=== PATIENT | male | born 1940 | race Caucasian/White ===

== ENCOUNTER 2019-07-14 09:37 | Outpatient (CLI) | payer MEDICARE, OTHER, SELFPAY ==
--- NOTE | 2019-07-14 | US_ITS ---
WS: [id number] Abdomen ultrasound, 07/14/2019 Clinical Data: SPLENIC LESION Comparison: CT chest abdomen, 10/07/2018 Findings: The pancreas shows no cyst, pseudocyst or evidence of pancreatitis. The liver shows no masses or dilated intrahepatic ducts. There are multiple small simple cysts. The gallbladder has no stones or sludge. The wall measures 1.7 mm with no pericholecystic fluid. The common bile duct is 1.5 mm and no intraductal abnormalities are noted. The right kidney is 10.6 cm. No cysts, masses or hydronephrosis is seen. The left kidney is 10.0 cm. No cysts, masses or hydronephrosis is seen. The abdominal aorta is not dilated and the inferior vena cava has normal flow. No vascular abnormalit ies are seen. The spleen was difficult to identify because of the lung obscuring the spleen. No definite splenic le sions are seen. US/US abdomen complete* [id number] Impression: 1. Difficult to identify the spleen and a repeat CT abdomen would identify the spleen better. 2. No acute intraabdominal abnormalities are noted.
== END 2019-07-14 09:38 | disposition home or self-care (01) ==
LOC: RADOUTREAD 11:32
PROVIDERS: Family Provider Physician Assistant; PCP Physician Assistant; Visit Provider Physician Assistant
DX: Z76.89 Persons encountering health services in other specified circumstances (principal)

== ENCOUNTER 2019-08-02 08:37 | Outpatient (CLI) | payer MEDICARE, OTHER, SELFPAY ==
--- NOTE | 2019-08-02 08:47 | CT_ITS ---
WS: [id number] CT ABDOMEN AND PELVIS WITH CONTRAST HISTORY: SPLENIC LESION TECHNIQUE: Imaging performed of the abdomen and pelvis with IV contrast. Single phase imaging of the abdomen. Coronal and sagittal reformats are submitted. All CT scans at [facility] use at least one of these dose optimization techniques: automated exposure control; mA and/or kV adjustment per patient size (includes targeted exams where dose is matched to clinical indication); or iterativ e reconstruction. IV CONTRAST: Omnipaque 300; 95 mL IV. Oral contrast: Yes. DLP: 848.3 mGycm COMPARISON: 10/07/2018 and ultrasound 07/14/2019 Lower thorax: Emphysema at the lung bases. No pleural effusion. Heart is normal size. No hiatal herni a. Liver/biliary system: Several low-attenuation lesions are present in the liver. The largest in the LE FT lobe measures 11 mm and unchanged. There is also mild intrahepatic duct dilatation which is new. Gallbladder: Normal. No gallstones or wall thickening. No pericholecystic fluid. Pancreas: Normal. Spleen: Spleen is normal size measuring 7.8 cm. Again noted are innumerable small cystic masses scatt ered throughout the spleen. The largest measures 6 mm. No increase in size or number as apparent. Adrenal glands: Normal. Right kidney: Normal. Left kidney: Normal. Aorta: Moderate atherosclerosis aorta. Mild ectasia infrarenal aorta 2.5 cm. Heavy calcification at t he bifurcation. Lymphadenopathy: None. Free fluid: None. GI tract: Extensive constipation. No obstructive pattern. No wall thickening. The appendix is not def initely identified. Abdominal wall: Unremarkable abdominal wall. No hernia. Pelvis: Mild diffuse thickening of the urinary bladder wall measuring up to 6 mm. RIGHT lateral bladd er diverticulum is identified measuring 2.2 cm. No focal thickening. Prostate gland is obscured by ar tifact in the LEFT hip prosthesis. Detail of the pelvis is limited with artifact. Bones: Unilateral RIGHT L5 pars defect. Prior LEFT hip arthroplasty. CT/CT abdomen pelvis w con* [id number] IMPRESSION: 1. Stable appearance of the spleen since 10/07/2018. No enlargement. Multiple ti ny cysts are unchanged. These may be congenital. Splenic metastasis would be un usual without a prior diagnosis of malignancy. 2. Interval development of very mild intrahepatic duct dilatation. No gallston es are identified. Consider follow-up MRCP for further evaluation. 3. Hepatic cysts. 4. Emphysema. 5. Bladder wall thickening with a RIGHT lateral diverticulum. May be due to ou tlet obstruction. Prostate gland is obscured by beam hardening artifact from th e LEFT hip arthroplasty.
[2019-08-02] MEDS: iohexol 300 mg/mL 50 mL Btl PO (09:17)
[2019-08-02] MEDS: iohexol 300 mg/mL 100 mL Btl IV (09:46)
== END 2019-08-02 08:38 | disposition home or self-care (01) ==
LOC: RADWPI 08:46
PROVIDERS: Family Provider Physician Assistant; PCP Physician Assistant; Visit Provider Physician Assistant
DX: K57.90 Diverticulosis of intestine, part unspecified, without perforation or abscess without bleeding (principal); D73.9 Disease of spleen, unspecified; K76.89 Other specified diseases of liver; J43.9 Emphysema, unspecified
CPT/HCPCS: 74177; Q9967

== ENCOUNTER 2020-07-01 16:53 | Emergency (ER) | payer MEDICARE, OTHER, SELFPAY ==
[2020-07-01 17:00] VITALS: BP 240/106; PULSE 73; RESP 14; TEMP 36.6; O2SAT 96; BMI 18.2
--- NOTE | 2020-07-01 17:12 | CTR_ITS ---
PROCEDURE INFORMATION: Exam: CT Head Without Contrast Exam date and time: 07/01/2020 5:30 PM Age: 80 years old Clinical indication: Pain; Headache not specified; Patient HX: C/O MURILLO w HTN TECHNIQUE: Imaging protocol: Computed tomography of the head without contrast. Radiation optimization: All CT scans at this facility use at least one of these dose optimization techniques: automated exposure control; mA and/or kV adjustment per patient size (includes targeted exams where dose is matched to clinical indication); or iterative reconstruction. COMPARISON: CT head wo con* [id number] 07/23/2017 10:52 AM RADIATION DOSE METRICS: Total DLP (mGy-cm): 834.1 FINDINGS: Brain: Mild atrophy and mild white matter chronic microvascular changes are noted. No hemorrhage or CT evidence of acute infarction is seen. Cerebral ventricles: No ventriculomegaly. Bones/joints: Unremarkable. No acute fracture. Paranasal sinuses: Visualized sinuses are unremarkable. No fluid levels. Mastoid air cells: Visualized mastoid air cells are well aerated. Soft tissues: Unremarkable. CT/CT head wo con* [id number] IMPRESSION: No acute intracranial abnormality Radiation Dose CTDIVOL = (mGy): DLP = 834.1 (mGy-cm)
--- NOTE | 2020-07-01 17:22 | W.ED.GENADLT ---
Documented by User: Elia Monsivais MD 07/01/20 17:43 HPI - General Adult General: Chief complaint: General Medical Stated complaint: HTN, SEVERE HEADACHE ACROSS TOP OF HEAD Time Seen by Provider: 07/01/20 17:07 Source: patient History of Present Illness: HPI narrative: Patient states that he awoke this morning with a headache. He took his blood pressure noticed that his blood pressure was 210 systolic. Upon arrival to the ER his blood pressure is actually 240 systolic. He denies having any other symptoms besides headache. He denies this being the worst headache of his life. He denies his headache being a sudden onset. He states that it started gradually this morning when he woke up and has gradually worsened since then. Location: head Associated symptoms: Reports headache(s); Deny chest pain, dyspnea, rash or palpitations Review of Systems General: Reports: 10 or more systems reviewed and unremarkable except in HPI and below Const: Denies: fever(s) or chills Eyes: Denies: change in vision ENMT: Denies: throat pain Card: Denies: chest pain or palpitations Resp: Denies: dyspnea GI: Denies: abdominal pain : Denies: flank pain Musc: Denies: neck pain or back pain Skin/Breast: Denies: rash Neuro: Reports: headache(s) Physical Exam Const: COMMON NORMALS: no acute distress, average body habitus, no limitations, healthy appearing, alert and well nourished HENMT: COMMON NORMALS: normocephalic, atraumatic, hearing grossly normal bilaterally, external ears normal, EAC's normal, TM's normal bilaterally, Normal external nose present, Normal nasal mucous membranes and turbinates present, moist oral mucous membranes, oropharynx normal, dentition normal and gingiva normal HEAD & SCALP: normocephalic and atraumatic NOSE: Normal external nose present and Normal nasal mucous membranes and turbinates present EXTERNAL EAR: Yes external ears normal EXTERNAL AUDITORY CANAL: EAC's normal TYMPANIC MEMBRANE: TM's normal bilaterally Eye: COMMON NORMALS: Equal, round and reactive pupils present, EOMs intact bilaterally, conjunctivae normal, no scleral icterus, no papilledema, normal visual edwards by confrontation and fundi normal bilaterally CONJUNCTIVA: Yes conjunctivae normal PUPIL: Yes Equal, round and reactive pupils present DIRECT OPHTHALMOSCOPY: Yes no papilledema and Yes fundi normal bilaterally Neck/C-Spine: COMMON NORMALS: full ROM, no lymphadenopathy, supple, no meningeal signs, Thyroid normal and No carotid bruits THYROID: Thyroid normal Chest: COMMONS NORMALS: normal inspection of the chest, normal palpation of entire chest wall, normal inspection of the breasts and normal palpation of the breasts Breast/axilla inspection: Yes normal inspection of the breasts BREAST/AXILLA PALPATION: Yes normal palpation of the breasts Resp: COMMON NORMALS: normal respiratory effort, No retractions, No use of accessory muscles, clear to auscultation bilaterally and percussion normal AUSCULTATION: clear to auscultation bilaterally PERCUSSION: percussion normal Extremity: COMMON NORMALS: normal to inspection, full ROM, capillary refill normal, no joint enlargement, no clubbing, cyanosis or edema, no calf tenderness and no pedal edema Neuro: SENSORIUM/ORIENTATION: Yes alert MENINGEAL SIGNS: Yes no meningeal signs Course Vital Signs: Vital signs: Vital Signs Temperature 97.9 F 07/01/20 17:00 Pulse Rate 70 07/01/20 19:42 Respiratory Rate 16 07/01/20 19:42 Blood Pressure 167/96 07/01/20 19:42 Pulse Oximetry 95 07/01/20 19:42 [facility] - General Adult Lab Data: Labs: Lab Results 07/01/20 07/01/20 Range/Units 17:20 17:20 WBC 9.8 (4.0-10.0) 10^3/ uL RBC 4.60 (4.1-5.3) 10^6/u L Hgb 14.4 (11.7-16.6) g/dL Hct 44.8 (42.0-52.0) % MCV 97.4 H (80-94) fL MCH 31.3 (28.0-34.0) pg MCHC 32.1 (30.0-36.0) g/dL RDW 12.9 (12.1-15.1) % Plt Count 292 (130-400) 10^3/c mm MPV 9.4 (7.4-10.4) fL Neut % (Auto) 63.5 % Lymph % (Auto) 25.5 % [place] % (Auto) 6.9 % Eos % (Auto) 3.3 % Baso % (Auto) 0.6 % Neut # (Auto) 6.24 (1.8-7.7) 10^3/u L Lymph # (Auto) 2.5 (0.8-4.8) 10^3/u L [place] # (Auto) 0.7 (0.2-0.9) 10^3/u L Eos # (Auto) 0.3 (0.0-0.8) 10^3/u L Baso # (Auto) 0.1 (0.0-0.1) 10^3/u L Nucleated RBC % (a uto) 0 % Nucleated RBCs # 0.0 /100WBC Sodium 139 (136-145) mmol/L Potassium 3.9 (3.5-5.1) mmol/L Chloride 102 (98-107) mmol/L Carbon Dioxide 27 (22-29) mmol/L Anion Gap 13.9 (5-19) BUN 18 (8-23) mg/dL Creatinine 0.7 (0.7-1.2) mg/dL GFR Calculation Not Reportable Glucose 90 (65-115) mg/dL Calculated Osmolal ity 289 (285-295) mOsm/k g Calcium 9.8 (8.5-10.5) mg/dL Total Bilirubin 0.4 (0.15-1.2) mg/dL AST 20 (0-40) U/L ALT 10 (0-41) U/L Alkaline Phosphata se 90 (40-130) IU/L Total Protein 9.9 H (6.6-8.7) g/dL Albumin 4.3 (3.5-5.2) g/dL Globulin 5.6 H (1.3-4.6) g/dL Discharge Plan Discharge Patient Disposition: Home Clinical Impression: Headache Qualifiers: Headache type: unspecified Headache chronicity pattern: unspecified pattern Intractability: not intractable Qualified Code(s): R51.9 - Headache, unspecified Hypertension Qualifiers: Hypertension type: unspecified Qualified Code(s): I10 - Essential (primary) hypertension Condition: Stable Prescriptions: Changed atenolol 50 mg tablet 50 mg PO BID Qty: 60 RF: 0 No Action multivitamin Tablet 1 tab PO QAM RF: 0 Aspir-81 81 mg Tablet,Delayed Release (Dr/Ec) 81 mg PO QAM RF: 0 naproxen sodium 220 mg Tablet 220 mg PO DAILY RF: 0 losartan 100 mg tablet 100 mg PO QAM RF: 0 fluticasone propionate 50 mcg/actuation spray,suspension 1 - 2 spray INTRANASAL QAM RF: 0 Spiriva Respimat 2.5 mcg/actuation mist 2 puff INHALATION DAILY RF: 0 Discharge Orders: Discharge ED (Routine); Ordered 07/01/20 Ordered By: Sera Hansen Referrals: Sapphire Boyd PA [Primary Care Provider] - 1-3 days Discharge Diet: Advance as tolerated Discharge Activity: Resume usual activity Patient Instructions: Acute Headache (ED), Hypertension (ED) Coding Level of Care Code ED Delivery And Mail Sorter for Chg Fwd Exam Detailed Documented by User: Sera Hansen MD 07/01/20 20:07 HPI - General Adult General: Chief complaint: General Medical Stated complaint: HTN, SEVERE HEADACHE ACROSS TOP OF HEAD Time Seen by Provider: 07/01/20 17:07 Course Vital Signs: Vital signs: Vital Signs Temperature 97.9 F 07/01/20 17:00 Pulse Rate 70 07/01/20 19:42 Respiratory Rate 16 07/01/20 19:42 Blood Pressure 167/96 07/01/20 19:42 Pulse Oximetry 95 07/01/20 19:42 MDM - General Adult MDM Narrative: Medical decision making narrative: Patient presents with high blood pressure along with a headache. His headache is mild in nature and does not have the symptoms of a subarachnoid hemorrhage. His head CT here is normal. Patient's blood work here is normal his blood pressure is improved. I will double his atenolol. He is to follow-up his PCP. He is return if worsening. Lab Data: Labs: Lab Results 07/01/20 07/01/20 Range/Units 17:20 17:20 WBC 9.8 (4.0-10.0) 10^3/ uL RBC 4.60 (4.1-5.3) 10^6/u L Hgb 14.4 (11.7-16.6) g/dL Hct 44.8 (42.0-52.0) % MCV 97.4 H (80-94) fL MCH 31.3 (28.0-34.0) pg MCHC 32.1 (30.0-36.0) g/dL RDW 12.9 (12.1-15.1) % Plt Count 292 (130-400) 10^3/c mm MPV 9.4 (7.4-10.4) fL Neut % (Auto) 63.5 % Lymph % (Auto) 25.5 % [place] % (Auto) 6.9 % Eos % (Auto) 3.3 % Baso % (Auto) 0.6 % Neut # (Auto) 6.24 (1.8-7.7) 10^3/u L Lymph # (Auto) 2.5 (0.8-4.8) 10^3/u L [place] # (Auto) 0.7 (0.2-0.9) 10^3/u L Eos # (Auto) 0.3 (0.0-0.8) 10^3/u L Baso # (Auto) 0.1 (0.0-0.1) 10^3/u L Nucleated RBC % (a uto) 0 % Nucleated RBCs # 0.0 /100WBC Sodium 139 (136-145) mmol/L Potassium 3.9 (3.5-5.1) mmol/L Chloride 102 (98-107) mmol/L Carbon Dioxide 27 (22-29) mmol/L Anion Gap 13.9 (5-19) BUN 18 (8-23) mg/dL Creatinine 0.7 (0.7-1.2) mg/dL GFR Calculation Not Reportable Glucose 90 (65-115) mg/dL Calculated Osmolal ity 289 (285-295) mOsm/k g Calcium 9.8 (8.5-10.5) mg/dL Total Bilirubin 0.4 (0.15-1.2) mg/dL AST 20 (0-40) U/L ALT 10 (0-41) U/L Alkaline Phosphata se 90 (40-130) IU/L Total Protein 9.9 H (6.6-8.7) g/dL Albumin 4.3 (3.5-5.2) g/dL Globulin 5.6 H (1.3-4.6) g/dL Imaging Data^: CT Head: Radiologist's impression: [facility] [address] [address] Scan Report Signed Patient: Lencho Blankenship Unit #: [id number] : 1940 Age/Sex: 80 / M ADM Date: 07/01/20 Loc: ER Room/Bed: Attending Dr: Ordering Provider/Ordering MD: Elia Monsivais DO Date of Service: 07/01/20 Procedure(s): CT head wo con* [id number] Accession Number(s): [id number] Report Number: [id number] PROCEDURE INFORMATION: Exam: CT Head Without Contrast Exam date and time: 07/01/2020 5:30 PM Age: 80 years old Clinical indication: Pain; Headache not specified; Patient HX: C/O MURILLO w HTN TECHNIQUE: Imaging protocol: Computed tomography of the head without contrast. Radiation optimization: All CT scans at this facility use at least one of these dose optimization techniques: automated exposure control; mA and/or kV adjustment per patient size (includes targeted exams where dose is matched to clinical indication); or iterative reconstruction. COMPARISON: CT head wo con* [id number] 07/23/2017 10:52 AM RADIATION DOSE METRICS: Total DLP (mGy-cm): 834.1 FINDINGS: Brain: Mild atrophy and mild white matter chronic microvascular changes are noted. No hemorrhage or CT evidence of acute infarction is seen. Cerebral ventricles: No ventriculomegaly. Bones/joints: Unremarkable. No acute fracture. Paranasal sinuses: Visualized sinuses are unremarkable. No fluid levels. Mastoid air cells: Visualized mastoid air cells are well aerated. Soft tissues: Unremarkable. CT/CT head wo con* [id number] IMPRESSION: No acute intracranial abnormality Radiation Dose CTDIVOL = (mGy): DLP = 834.1 (mGy-cm) Dictated By: Dario Oneill MD Signed By: Dario Oneill MD Signed Date/Time: 07/01/201811 Discharge Plan Discharge Patient Disposition: Home Clinical Impression: Headache Qualifiers: Headache type: unspecified Headache chronicity pattern: unspecified pattern Intractability: not intractable Qualified Code(s): R51.9 - Headache, unspecified Hypertension Qualifiers: Hypertension type: unspecified Qualified Code(s): I10 - Essential (primary) hypertension Condition: Stable Prescriptions: Changed atenolol 50 mg tablet 50 mg PO BID Qty: 60 RF: 0 No Action multivitamin Tablet 1 tab PO QAM RF: 0 Aspir-81 81 mg Tablet,Delayed Release (Dr/Ec) 81 mg PO QAM RF: 0 naproxen sodium 220 mg Tablet 220 mg PO DAILY RF: 0 losartan 100 mg tablet 100 mg PO QAM RF: 0 fluticasone propionate 50 mcg/actuation spray,suspension 1 - 2 spray INTRANASAL QAM RF: 0 Spiriva Respimat 2.5 mcg/actuation mist 2 puff INHALATION DAILY RF: 0 Discharge Orders: Discharge ED (Routine); Ordered 07/01/20 Ordered By: Sera Hansen Referrals: Sapphire Boyd PA [Primary Care Provider] - 1-3 days Discharge Diet: Advance as tolerated Discharge Activity: Resume usual activity Patient Instructions: Acute Headache (ED), Hypertension (ED) Coding Level of Care Code ED Delivery And Mail Sorter for Chg Fwd Exam Detailed
[2020-07-01 17:31] LABS: Basophils # 0.1 10^3/uL (0.0-0.1); Basophils % 0.6 %; Eosinophils # 0.3 10^3/uL (0.0-0.8); Eosinophils % 3.3 %; Hematocrit 44.8 % (42.0-52.0); Hemoglobin 14.4 g/dL (11.7-16.6); Lymphocytes # 2.5 10^3/uL (0.8-4.8); Lymphocytes % 25.5 %; Mean Corpuscular HGB Conc 32.1 g/dL (30.0-36.0); Mean Corpuscular Hemoglobin 31.3 pg (28.0-34.0); Mean Corpuscular Volume 97.4 fL (80-94); Mean Platelet Volume 9.4 fL (7.4-10.4); Monocytes # 0.7 10^3/uL (0.2-0.9); Monocytes % 6.9 %; Neutrophils # 6.24 10^3/uL (1.8-7.7); Neutrophils % 63.5 %; Nucleated Red Blood Cells % 0 %; Platelet Count 292 10^3/cmm (130-400); Red Cell Distribution Width 12.9 % (12.1-15.1); White Blood Count 9.8 10^3/uL (4.0-10.0)
[2020-07-01] MEDS: hyDRALAzine 20 mg/mL INJ 1 mL 10 MG IVP (17:34)
[2020-07-01] MEDS: metoclopramide 5 mg/mL SDV 2 mL 10 MG IVP (17:34)
[2020-07-01] MEDS: sodium chloride 0.9% 500 ML 999 ML IV (17:34)
[2020-07-01] MEDS: diphenhydrAMINE 50 mg/mL SDV 1mL 25 MG IVP (17:35)
[2020-07-01 17:36] VITALS: RESP 18
[2020-07-01 17:37] VITALS: O2SAT 98
[2020-07-01 17:51] VITALS: BP 220/88; PULSE 61; RESP 26; O2SAT 96
[2020-07-01 17:51] LABS: Alanine Aminotransferase 10 U/L (0-41); Albumin Level 4.3 g/dL (3.5-5.2); Alkaline Phosphatase 90 IU/L (40-130); Anion Gap 13.9 (5-19); Aspartate Amino Transferase 20 U/L (0-40); Blood Urea Nitrogen 18 mg/dL (8-23); Calcium 9.8 mg/dL (8.5-10.5); Carbon Dioxide 27 mmol/L (22-29); Chloride 102 mmol/L (98-107); Glucose 90 mg/dL (65-115); Osmolality Calculated 289 mOsm/kg (285-295); Potassium 3.9 mmol/L (3.5-5.1); Sodium 139 mmol/L (136-145); Total Bilirubin 0.4 mg/dL (0.15-1.2)
[2020-07-01 17:54] VITALS: BP 170/80
[2020-07-01] MEDS: labetalol 5 mg/mL SDV 20mL 10 MG IVP (18:44)
[2020-07-01 19:42] VITALS: BP 167/96; PULSE 70; RESP 16; O2SAT 95
[2020-07-02 19:59] LABS: Globulin 3.1 g/dL (1.3-4.6); Total Protein 7.4 g/dL (6.6-8.7)
== END 2020-07-01 19:43 | disposition home or self-care (01) ==
PROVIDERS: Emergency Medicine; Emergency Provider Emergency Medicine; PCP Physician Assistant
DX: I10 Essential (primary) hypertension (principal); R51.9 Headache, unspecified; Z79.82 Long term (current) use of aspirin
CPT/HCPCS: 12345; 70450; 80053; 85025; 96374; 96375; 99283; J0360; J1200; J2765; J3490; J7040

== ENCOUNTER → 2020-08-03 09:41 | Outpatient (BNVA) | payer MEDICARE, OTHER, SELFPAY | PROVIDERS: PCP Family Medicine; Visit Provider Internal Medicine | DX: M06.9 Rheumatoid arthritis, unspecified (principal); M25.539 Pain in unspecified wrist; Z79.899 Other long term (current) drug therapy; Z11.1 Encounter for screening for respiratory tuberculosis; Z11.59 Encounter for screening for other viral diseases; I10 Essential (primary) hypertension; F17.210 Nicotine dependence, cigarettes, uncomplicated | CPT/HCPCS: 99214 ==

== ENCOUNTER 2020-08-03 12:09 | Outpatient (CLI) | payer MEDICARE, OTHER, SELFPAY ==
--- NOTE | 2020-08-03 12:16 | XR_ITS ---
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 The lungs are hyperinflated and clear. Unremarkable cardiomediastinal structures. Regional bony eleme nts are intact. XR/XR chest 2V* [id number] IMPRESSION: 1. Pulmonary hyperinflation suggesting obstructive lung disease. 2. No acute cardiopulmonary process.
--- NOTE | 2020-08-03 12:16 | XR_ITS ---
WS: [id number] Exam: XR wrist LT 2V [id number] Date/Time of Exam: 08/03/2020 12:16 PM Reason For Exam: M06.9 - Rheumatoid arthritis, unspecified There is severe degeneration with bony erosion of the radiocarpal articulation. Extensive subcortical cyst formation in the distal radius and ulna with bony erosion. There appears to be complete resorpt ion of the proximal carpal row. Advanced changes of cyst formation and erosion in the distal carpal r ow. No acute fracture. Soft tissue swelling over the dorsum of the wrist. XR/XR wrist LT 2V [id number] IMPRESSION: 1. 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
--- NOTE | 2020-08-03 12:16 | XR_ITS ---
WS: [id number] Exam: XR wrist RT 2V [id number] Date/Time of Exam: 08/03/2020 12:16 PM Reason For Exam: M06.9 - Rheumatoid arthritis, unspecified Arthrodesis of the distal radius and ulna as well as the proximal carpal row noted. Advanced degenera tive changes in the intercarpal articulations apparently sequela from the rheumatoid arthritis. Large area of bony cortical erosion involving the medial distal radius. Severe degeneration of the carpal bones with subcortical cysts and bony erosions. Deformity and bony erosions of the distal metacarpals with subluxation of the second through the fifth MP joints. 4 x 2 mm soft tissue metallic foreign body seen near the MP joint of the thumb. XR/XR wrist RT 2V [id number] IMPRESSION: 1. Arthrodesis of the distal radius and ulna as well as the proximal carpal row . 2. Severe changes of rheumatoid arthritis noted in the carpal bones and visuali zed MP joints as well as the distal radius. See above discussion.
--- NOTE | 2020-08-03 12:16 | XR_ITS ---
WS: [id number] Exam: XR hand LT 2V [id number] Date/Time of Exam: 08/03/2020 12:16 PM Reason For Exam: M06.9 - Rheumatoid arthritis, unspecified Extensive bony erosions and subcortical cyst formation identified in the phalanges and metacarpals. T here is subluxation of the second through the fourth metacarpal joints. Ulnar deviation of the second through the fourth fingers. Extensive. Articular demineralization of bone. Deformity of the thumb. N o acute fracture. XR/XR hand LT 2V [id number] IMPRESSION: 1. Advanced changes of rheumatoid arthritis of the hand as detailed above. 2. No acute fracture.
--- NOTE | 2020-08-03 12:16 | XR_ITS ---
WS: [id number] Exam: XR hand RT 2V [id number] Date/Time of Exam: 08/03/2020 12:16 PM Reason For Exam: M06.9 - Rheumatoid arthritis, unspecified There are severe changes of the bony erosion and deformity involving the MP joints of the second thro ugh the fifth fingers. These joints are subluxed. There is ulnar deviation of the second through the fifth fingers. There is bony destruction and cupping of the proximal ends of the proximal phalanges o f the second through the fifth fingers. There is extensive osseous destruction and subcortical cyst formation in the remaining carpal bones. There is arthrodesis of the radiocarpal joint as previously noted. No acute fracture seen. Periarticular demineralization of bone. 4 mm x 2 mm metallic foreign b jean pierre seen near the MP joint of the thumb. XR/XR hand RT 2V [id number] IMPRESSION: 1. Severe changes of rheumatoid arthritis as discussed above. There are postope rative changes of the wrist.
[2020-08-03 13:07] LABS: Basophils # 0.1 10^3/uL (0.0-0.1); Basophils % 0.6 %; Eosinophils # 0.3 10^3/uL (0.0-0.8); Hematocrit 45.8 % (42.0-52.0); Hemoglobin 14.5 g/dL (11.7-16.6); Lymphocytes # 1.9 10^3/uL (0.8-4.8); Lymphocytes % 19.4 %; Mean Corpuscular HGB Conc 31.7 g/dL (30.0-36.0); Mean Corpuscular Hemoglobin 30.6 pg (28.0-34.0); Mean Corpuscular Volume 96.6 fL (80-94); Mean Platelet Volume 9.2 fL (7.4-10.4); Monocytes # 0.6 10^3/uL (0.2-0.9); Neutrophils # 6.87 10^3/uL (1.8-7.7); Neutrophils % 70.7 %; Nucleated Red Blood Cells % 0 %; Platelet Count 313 10^3/cmm (130-400); Red Blood Count 4.74 10^6/uL (4.1-5.3); Red Cell Distribution Width 13.3 % (12.1-15.1); White Blood Count 9.7 10^3/uL (4.0-10.0)
[2020-08-03 13:23] LABS: Alanine Aminotransferase 14 U/L (0-41); Albumin Level 4.2 g/dL (3.5-5.2); Alkaline Phosphatase 79 IU/L (40-130); Aspartate Amino Transferase 21 U/L (0-40); Blood Urea Nitrogen 19 mg/dL (8-23); C Reactive Protein 1.8 mg/L (0.0-4.9); Calcium 9.7 mg/dL (8.5-10.5); Carbon Dioxide 30 mmol/L (22-29); Chloride 105 mmol/L (98-107); Globulin 3.2 g/dL (1.3-4.6); Glucose 82 mg/dL (65-115); Osmolality Calculated 297 mOsm/kg (285-295); Sodium 143 mmol/L (136-145); Total Bilirubin 0.3 mg/dL (0.15-1.2); Total Protein 7.4 g/dL (6.6-8.7)
[2020-08-03 13:55] LABS: Hepatitis B Core AB, Total Non-Reactive (Nonreactive); Hepatitis B Surface Antigen Non-Reactive (Nonreactive); Hepatitis C Virus Antibody Non-Reactive (Nonreactive)
[2020-08-03 14:01] LABS: Erythrocyte Sedimentation Rate 18 mm/hr (0-10)
[2020-08-06 11:53] LABS: Quantiferon Mitogen 9.54 IU/mL; Quantiferon Nil 0.05 IU/mL; Quantiferon Plus TB1 <0.00 IU/mL; Quantiferon Plus TB2 <0.00 IU/mL; Quantiferon TB Gold NEGATIVE (NEGATIVE)
[2020-08-06 15:27] LABS: Cyclic Citrullinated Peptide >250 UNITS
[2020-08-08 02:56] LABS: Glucose-6-Phosphate Dehydrogen 15.5 U/g Hgb (7.0-20.5)
== END 2020-08-03 12:10 | disposition home or self-care (01) ==
LOC: LAB 12:12
PROVIDERS: PCP Family Medicine; Visit Provider Internal Medicine
DX: Z79.899 Other long term (current) drug therapy (principal); M06.9 Rheumatoid arthritis, unspecified; M25.539 Pain in unspecified wrist; D86.9 Sarcoidosis, unspecified; M32.9 Systemic lupus erythematosus, unspecified; Z51.81 Encounter for therapeutic drug level monitoring; Z98.1 Arthrodesis status
CPT/HCPCS: 36415; 71046; 73100; 73120; 80053; 82955; 85025; 85651; 86140; 86431; 86480; 86704; 86803; 87340

== ENCOUNTER → 2020-11-20 15:40 | Outpatient (BNVA) | payer MEDICARE, OTHER, SELFPAY | PROVIDERS: PCP Family Medicine; Visit Provider Internal Medicine | DX: I10 Essential (primary) hypertension (principal); R60.9 Edema, unspecified | CPT/HCPCS: 80048; 83880 ==

== ENCOUNTER 2021-02-22 18:39 | Observation (INO) | payer OTHER, MEDICARE, SELFPAY ==
[2021-02-22] VITALS (7 sets, daily range): BP systolic 137–167; BP diastolic 68–98; PULSE 37–74; RESP 16–18; TEMP 36.6–37.1; O2SAT 97–98; BMI 15.6
--- NOTE | 2021-02-22 19:12 | ECG_ITS ---
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 Measurements Intervals [place] Rate: 70 P: 73 AL: 139 QRS: 83 QRSD: 102 T: 74 QT: 388 QTc: 419 Interpretive Statements SINUS RHYTHM WITH FREQUENT SUPRAVENTRICULAR PREMATURE COMPLEXES IN A BIGEMINAL PATTERN ABNORMAL RHYTHM ECG Compared to ECG 04/03/2018 11:34:11 Sinus arrhythmia no longer present Electronically Signed On 02-23-2021 8:37:23 CDT by Roxie Acosta M.D. [id number]
--- NOTE | 2021-02-22 19:12 | W.ED.NEUROSD ---
HPI - Neuro Symptoms/Deficit General: Chief Complaint: Neuro Symptoms/Deficit Stated Complaint: BACK PAIN/RECENT BLURRED VISION & SLURRED SPEECH Time Seen by Provider: 02/22/21 19:06 Source: patient Mode of arrival: ambulatory Limitations: no limitations History of Present Illness: HPI Narrative: 81-year-old male states today at 2 PM [address] was [address] with his and had pulled over and states that he started having some diaphoresis along with garbled speech blurred vision and weakness. He states this lasted roughly 30 minutes and has since resolved completely. He denies any headache or chest pain. He has never had any history of stroke or TIA in the past. He has no medical complaints at this time states that he does have a 30-minute episode earlier today. Associated symptoms: Deny chest pain, nausea or vomiting Review of Systems Const: Denies: fever(s), chills, body aches or change in appetite Eyes: Reports: change in vision ENMT: Denies: throat pain or dental pain Card: Denies: chest pain Resp: Denies: dyspnea GI: Denies: abdominal pain, nausea, vomiting or diarrhea : Denies: dysuria Musc: Denies: neck pain or back pain Skin/Breast: Denies: rash Neuro: Reports: weakness in extremities and Slurred speech present Psych: Denies: depression Richar/Lymph: Denies: easy bruising All/Imm: Denies: urticaria PFSH ED PFSH: Medical History Hypertension Rheumatoid arthritis Tobacco abuse Wrist pain Surgical History History of hip replacement Social History Smoking and tobacco status: current every day smoker Quit status (tobacco): considering quitting Second hand smoke exposure: No Smoking risk assessment/counseling performed?: Yes Alcohol intake: never NIH stroke score NIHSS: Level Of Consciousness - 1a: 0 Level Of Consciousness Questions - 1b: Both Correct Level Of Consciousness Commands - 1c: Both Correct Best Gaze - 2: Normal Visual Ardon - 3: No Visual Loss Facial Palsy - 4: Normal Motor Arm Right - 5: No Drift Motor Arm Left - 5: No Drift Motor Leg Right - 6: No Drift Motor Leg Left - 6: No Drift Limb Ataxia - 7: Absent Sensory - 8: Normal Best Language - 9: No Aphasia Dysarthia - 10: Normal Extinction And Inattention - 11: 0 Score: Total Score: 0 Physical Exam Const: COMMON NORMALS: no acute distress, patient oriented x3 and healthy appearing HENMT: COMMON NORMALS: normocephalic and atraumatic HEAD & SCALP: normocephalic and atraumatic Eye: COMMON NORMALS: Equal, round and reactive pupils present and EOMs intact bilaterally PUPIL: Yes Equal, round and reactive pupils present Neck/C-Spine: COMMON NORMALS: full ROM and supple Chest: COMMONS NORMALS: normal inspection of the chest and normal palpation of entire chest wall Resp: COMMON NORMALS: normal respiratory effort, No retractions, No use of accessory muscles and clear to auscultation bilaterally AUSCULTATION: clear to auscultation bilaterally Cardio: COMMON NORMALS: regular rate, regular rhythm and No murmurs present (Cardio) RATE: regular rate RHYTHM: regular rhythm GI: COMMON NORMALS: Normal to inspection, nondistended, normoactive bowel sounds present, Soft to palpation, non-tender and no masses PALPATION: Yes Soft to palpation Extremity: COMMON NORMALS: normal to inspection and full ROM Neuro: COMMON NORMALS: patient oriented x3, moves all extremities and no focal motor deficits Psych: COMMON NORMALS: mental status grossly normal, Normal thought process present and cooperative THOUGHT PROCESS: Normal thought process present Skin: COMMON NORMALS: no rashes or lesions noted and no wounds GENERAL SKIN EXAM: no rashes or lesions noted Course Vital Signs: Vital signs: Vital Signs Temperature 97.9 F 02/22/21 18:53 Pulse Rate 70 02/22/21 19:11 Respiratory Rate 18 02/22/21 20:30 Blood Pressure 156/98 02/22/21 20:30 Pulse Oximetry 98 02/22/21 20:30 MDM - Neuro Symptoms/Deficit MDM Narrative: Medical decision making narrative: Patient presents here with a likely TIA. His symptoms have resolved and he is not a TPA candidate. His NIH here is 0. He is never had a TIA in the past spoke to hospitalist will admit for observation at this time. Lab Data: Labs: Lab Results 02/22/21 02/22/21 02/22/21 Range/Units 19:31 19:32 19:32 WBC 10.5 H (4.0-10.0) 10^3/ uL RBC 4.32 (4.1-5.3) 10^6/u L Hgb 13.5 (11.7-16.6) g/dL Hct 41.4 L (42.0-52.0) % MCV 95.8 H (80-94) fl MCH 31.3 (28.0-34.0) pg MCHC 32.6 (30.0-36.0) g/dL RDW 12.8 (12.1-15.1) % Plt Count 294 (130-400) 10^3/c mm MPV 9.1 (7.4-10.4) fL Neut % (Auto) 71.5 % Lymph % (Auto) 18.2 % [place] % (Auto) 8.0 % Eos % (Auto) 1.4 % Baso % (Auto) 0.5 % Neut # (Auto) 7.48 (1.8-7.7) 10^3/u L Lymph # (Auto) 1.9 (0.8-4.8) 10^3/u L [place] # (Auto) 0.8 (0.2-0.9) 10^3/u L Eos # (Auto) 0.2 (0.0-0.8) 10^3/u L Baso # (Auto) 0.1 (0.0-0.1) 10^3/u L Nucleated RBC % (a uto) 0 % Nucleated RBCs # 0.0 /100WBC PT 13.00 (12.1-14.9) SECO NDS INR 0.95 (0.8-1.2) Sodium (136-145) mmol/L Potassium (3.5-5.1) mmol/L Chloride (98-107) mmol/L Carbon Dioxide (22-29) mmol/L Anion Gap (5-19) BUN (8-23) mg/dL Creatinine (0.7-1.2) mg/dL GFR Calculation Glucose (65-115) mg/dL POC Glucose 100 (70-110) mg/dL Calculated Osmolal ity (285-295) mOsm/k g Calcium (8.5-10.5) mg/dL Total Bilirubin (0.15-1.2) mg/dL AST (0-40) U/L ALT (0-41) U/L Alkaline Phosphata se (40-130) IU/L Total Protein (6.6-8.7) g/dL Albumin (3.5-5.2) g/dL Globulin (1.3-4.6) g/dL 02/22/21 Range/Units 19:32 WBC (4.0-10.0) 10^3/ uL RBC (4.1-5.3) 10^6/u L Hgb (11.7-16.6) g/dL Hct (42.0-52.0) % MCV (80-94) fl MCH (28.0-34.0) pg MCHC (30.0-36.0) g/dL RDW (12.1-15.1) % Plt Count (130-400) 10^3/c mm MPV (7.4-10.4) fL Neut % (Auto) % Lymph % (Auto) % [place] % (Auto) % Eos % (Auto) % Baso % (Auto) % Neut # (Auto) (1.8-7.7) 10^3/u L Lymph # (Auto) (0.8-4.8) 10^3/u L [place] # (Auto) (0.2-0.9) 10^3/u L Eos # (Auto) (0.0-0.8) 10^3/u L Baso # (Auto) (0.0-0.1) 10^3/u L Nucleated RBC % (a uto) % Nucleated RBCs # /100WBC PT (12.1-14.9) SECO NDS INR (0.8-1.2) Sodium 135 L (136-145) mmol/L Potassium 4.0 (3.5-5.1) mmol/L Chloride 99 (98-107) mmol/L Carbon Dioxide 23 (22-29) mmol/L Anion Gap 17.0 (5-19) BUN 22 (8-23) mg/dL Creatinine 0.9 (0.7-1.2) mg/dL GFR Calculation Not Reportable Glucose 99 (65-115) mg/dL POC Glucose (70-110) mg/dL Calculated Osmolal ity 283 L (285-295) mOsm/k g Calcium 9.7 (8.5-10.5) mg/dL Total Bilirubin 0.3 (0.15-1.2) mg/dL AST 20 (0-40) U/L ALT 12 (0-41) U/L Alkaline Phosphata se 72 (40-130) IU/L Total Protein 6.6 (6.6-8.7) g/dL Albumin 3.8 (3.5-5.2) g/dL Globulin 2.8 (1.3-4.6) g/dL Imaging Data^: CT Head: Attestation: I personally reviewed and interpreted this imaging study as follows: Radiologist's impression: [facility] [address] [address] Scan Report Signed Patient: Lencho Blankenship Unit #: [id number] : 1940 Age/Sex: 81 / M ADM Date: 02/22/21 Loc: ER Room/Bed: Attending Dr: Ordering Provider/Ordering MD: Sera Hansen MD Date of Service: 02/22/21 Procedure(s): CT head wo con* [id number] Accession Number(s): [id number] Report Number: [id number] PROCEDURE INFORMATION: Exam: CT Head Without Contrast Exam date and time: 02/22/2021 7:11 PM Age: 81 years old Clinical indication: Dizziness and speech disturbance and visual disturbance; Patient HX: Transient blurred vision, slurred speech and dizziness - resolved; Additional info: CVA TECHNIQUE: Imaging protocol: Computed tomography of the head without contrast. Radiation optimization: All CT scans at this facility use at least one of these dose optimization techniques: automated exposure control; mA and/or kV adjustment per patient size (includes targeted exams where dose is matched to clinical indication); or iterative reconstruction. COMPARISON: CT head wo con* [id number] 07/01/2020 5:27 PM RADIATION DOSE METRICS: Total DLP (mGy-cm): 886.3 FINDINGS: Brain: There is moderate cortical atrophy. Low-density changes in the white matter are consistent with nonspecific small vessel chronic ischemic change. There is no intracranial mass, hemorrhage or edema. Cerebral ventricles: No ventriculomegaly. Paranasal sinuses: Visualized sinuses are unremarkable. No fluid levels. Mastoid air cells: Visualized mastoid air cells are well aerated. Vasculature: There is a tiny bubble of gas in the left cavernous sinus not likely to be clinically significant. Bones/joints: Unremarkable. No acute fracture. Soft tissues: Unremarkable. CT/CT head wo con* [id number] IMPRESSION: No acute intracranial finding. Radiation Dose CTDIVOL = (mGy): DLP = 886.3 (mGy-cm) Dictated By: Tom Sears Signed By: Tom Sears Signed Date/Time: 02/22/212022 DD/ 20 CXR: Attestation: I personally reviewed and interpreted this imaging study as follows: Radiologist's impression: [employer] [address] XRay Report Signed Patient: Lencho Blankenship Unit #: [id number] : 1940 Age/Sex: 81 / M ADM Date: 02/22/21 Loc: ER Room/Bed: Attending Dr: Ordering Provider/Ordering MD: Sera Hansen MD Date of Service: 02/22/21 Procedure(s): XR chest 1V portable [id number] Accession Number(s): [id number] Report Number: [id number] PROCEDURE INFORMATION: Exam: XR Chest Exam date and time: 02/22/2021 7:11 PM Age: 81 years old Clinical indication: Other: Slurred speech; Additional info: CVA TECHNIQUE: Imaging protocol: XR of the chest. Views: 1 view. COMPARISON: CR XR chest 2V* [id number] 08/03/2020 12:25 PM FINDINGS: Lungs: Emphysematous changes are present in both lungs. No focal infiltrate is identified. Pleural spaces: Unremarkable. No pleural effusion. No pneumothorax. Heart/Mediastinum: Heart is within normal limits of size. Bones/joints: Unremarkable. Other findings: No significant change is seen compared with 08/03/2020. XR/XR chest 1V portable [id number] IMPRESSION: No acute infiltrate. Dictated By: Tom Sears Signed By: Tom Sears Signed Date/Time: 02/22/212022 DD/ 21 EKG Data^: EKG 1: Attestation: I personally reviewed and interpreted this EKG as follows: EKG interpretation date: 02/22/21 EKG interpretation time: 18:57 Interpretation: nsr hr [address] or t wave abnormalities qrs 102 qtc 408 Discharge Plan Discharge Patient Disposition: Placed in Observation Clinical Impression: Transient cerebral ischemia Qualifiers: Transient cerebral ischemia type: unspecified Qualified Code(s): G45.9 - Transient cerebral ischemic attack, unspecified Coding Level of Care Code ED Accounting Generalist for [facility] Fwd Exam Comprehensive
[2021-02-22 19:35] LABS: Glucose Point of Care 100 mg/dL (70-110)
[2021-02-22 19:42] LABS: Basophils # 0.1 10^3/uL (0.0-0.1); Basophils % 0.5 %; Eosinophils # 0.2 10^3/uL (0.0-0.8); Eosinophils % 1.4 %; Hematocrit 41.4 % (42.0-52.0); Hemoglobin 13.5 g/dL (11.7-16.6); Lymphocytes # 1.9 10^3/uL (0.8-4.8); Lymphocytes % 18.2 %; Mean Corpuscular HGB Conc 32.6 g/dL (30.0-36.0); Mean Corpuscular Hemoglobin 31.3 pg (28.0-34.0); Mean Corpuscular Volume 95.8 fl (80-94); Mean Platelet Volume 9.1 fL (7.4-10.4); Monocytes # 0.8 10^3/uL (0.2-0.9); Neutrophils # 7.48 10^3/uL (1.8-7.7); Neutrophils % 71.5 %; Nucleated Red Blood Cells % 0 %; Platelet Count 294 10^3/cmm (130-400); Red Blood Count 4.32 10^6/uL (4.1-5.3); Red Cell Distribution Width 12.8 % (12.1-15.1); White Blood Count 10.5 10^3/uL (4.0-10.0)
[2021-02-22 19:53] LABS: INR 0.95 (0.8-1.2)
[2021-02-22 20:00] LABS: Alanine Aminotransferase 12 U/L (0-41); Albumin Level 3.8 g/dL (3.5-5.2); Alkaline Phosphatase 72 IU/L (40-130); Aspartate Amino Transferase 20 U/L (0-40); Blood Urea Nitrogen 22 mg/dL (8-23); Calcium 9.7 mg/dL (8.5-10.5); Carbon Dioxide 23 mmol/L (22-29); Chloride 99 mmol/L (98-107); Globulin 2.8 g/dL (1.3-4.6); Glucose 99 mg/dL (65-115); Osmolality Calculated 283 mOsm/kg (285-295); Sodium 135 mmol/L (136-145); Total Bilirubin 0.3 mg/dL (0.15-1.2); Total Protein 6.6 g/dL (6.6-8.7)
[2021-02-22 20:12] LABS: Slide Review Slide Review Perform
[2021-02-22 21:54] LABS: Glucose Point of Care 98 mg/dL (70-110)
--- NOTE | 2021-02-22 22:21 | PM.HP ---
Providers/Chief Complaint Admitting Physician: Agapito Oconnell MD Primary Care Provider: Diallo Araujo MD Chief Complaint: BACK PAIN/RECENT BLURRED VISION & SLURRED SPEECH History of Present Illness Lencho Blankenship is a 81 year old male with a past medical history of COPD, chronic smoker, hypertension, hyperlipidemia, rheumatoid arthritis currently not on any medications, who presents to [facility] due to complaints of visual changes, slurring of his speech. Patient today's tells me today at 1 PM, he was driving home, from washing his car, when he noticed his vision started to go blurry, and his who is at his side, noticed that his speech was slurred, no focal neurologic deficits, no paresthesias, no facial droop. He continued to drive home, and when he arrived home, he went to bed, and woke up roughly an hour later and his symptoms completely resolved. Denies any prior history of CVAs or strokes. Denies a history of carotid artery stenosis. Denies a history of strokes. No urinary or bowel incontinence. No postictal confusion, no seizure-like events. He is a smoker, he does not know about any family history of strokes, he tells me that he is the youngest of 8 children, and he did not keep up with his family, he went off to the [place] for about 20 years, and he never connected back with his family. Currently he is doing well, NIH stroke scale 0, denies any cardiovascular history, denies any history of chest pain, he does tell me that he was being treated for rheumatoid arthritis a few years ago with some sort of rheumatoid arthritis medication he is not exactly sure which one, but it gave him palpitations, so he had to be stopped, is not sure exactly what the palpitations were, he is not sure if it was atrial fibrillation. Review of Systems Const: Denies: fever(s), chills, fatigue or malaise Eyes: Denies: change in vision or blurry vision ENMT: Denies: nasal congestion Card: Denies: chest pain, palpitations, irregular heart rhythm, edema, lightheadedness, syncope or pre-syncope Resp: Denies: dyspnea, productive cough, non-productive cough or wheezing GI: Denies: abdominal pain, nausea, vomiting, hematemesis, diarrhea, constipation, hematochezia or melena : Denies: flank pain, difficulty urinating, dysuria or urinary frequency Musc: Reports: extremity pain and joint pain; Denies: neck pain or back pain Skin/Breast: Denies: rash Neuro: Reports: Slurred speech present; Denies: headache(s), numbness in extremities, weakness in extremities, lack of coordination, difficulty walking, frequent falls, dizziness or vertigo Psych: Denies: anxiety or depression Endo: Denies: polyuria or polydipsia Medications/Allergies Home Medications Medication Instructions Recorded Confirmed Last Taken Type aspirin [Aspir-81] 81 mg PO QAM 07/01/20 02/22/21 02/22/21 History fluticasone propionate 1 - 2 spray INTRANASAL QAM 07/01/20 02/22/21 07/01/20 History 1 spray losartan 100 mg PO QAM 07/01/20 02/22/21 02/22/21 History multivitamin 1 tab PO QAM 07/01/20 02/22/21 02/22/21 History naproxen sodium 220 mg PO DAILY PRN 07/01/20 02/22/21 07/01/20 History tiotropium bromide [Spiriva 2 puff INHALATION DAILY 07/01/20 02/22/21 02/22/21 History Respimat] fluticasone 250 mcg-salmeterol 50 1 inh INHALATION BID 08/02/20 02/22/21 02/22/21 History mcg/dose blistr powdr for inhalation hydrochlorothiazide 12.5 mg tablet 12.5 mg PO DAILY #90 tab 11/22/20 02/22/21 02/22/21 Rx amlodipine 5 mg PO DAILY 02/22/21 02/22/21 02/22/21 History atenolol 50 mg PO DAILY 02/22/21 02/22/21 02/22/21 History Allergies Allergy/AdvReac Type Severity Reaction Status Date / Time No Known Allergies Allergy Verified 02/22/21 19:02 PFSH Acute PFSH: Medical History (Updated 02/22/21 @ 22:26 by Agapito Oconnell MD) COPD (chronic obstructive pulmonary disease) HLD (hyperlipidemia) Hypertension Rheumatoid arthritis Tobacco abuse Wrist pain Surgical History History of hip replacement Social History Smoking and tobacco status: current every day smoker Quit status (tobacco): considering quitting Second hand smoke exposure: No Smoking risk assessment/counseling performed?: Yes Alcohol intake: never Vitals/I&O/Wt Last Vital Signs Temp 98.8 F 02/22/21 21:42 Pulse 74 02/22/21 21:43 Resp 18 02/22/21 21:43 BP 137/72 02/22/21 21:43 Pulse Ox 97 02/22/21 21:43 Weight last 48 hrs Weight 45.359 kg Physical Exam Const: COMMON NORMALS: no acute distress and patient oriented x3 GENERAL APPEARANCE: cooperative and comfortable HENMT: COMMON NORMALS: normocephalic HEAD & SCALP: normocephalic Eye: COMMON NORMALS: Equal, round and reactive pupils present and EOMs intact bilaterally GENERAL EYE: appearance normal, both eyes and all related structures PUPIL: Yes Equal, round and reactive pupils present Neck/C-Spine: COMMON NORMALS: full ROM and no lymphadenopathy THYROID: Thyroid normal Lymph: LYMPHATIC: no lymphadenopathy noted Resp: COMMON NORMALS: normal respiratory effort, No retractions, No use of accessory muscles and clear to auscultation bilaterally AUSCULTATION: clear to auscultation bilaterally Cardio: COMMON NORMALS: regular rate, regular rhythm, S1 normal heart sound present, S2 normal heart sound present, No gallops present (Cardio), No clicks present (Cardio) and No murmurs present (Cardio) RATE: regular rate RHYTHM: regular rhythm HEART SOUNDS: S1 normal heart sound present and S2 normal heart sound present GI: COMMON NORMALS: Normal to inspection, nondistended, normoactive bowel sounds present, Soft to palpation, non-tender and No hepatosplenomegaly present PALPATION: Yes Soft to palpation and Yes No hepatosplenomegaly present Extremity: COMMON NORMALS: normal to inspection, full ROM and no pedal edema OTHER: Bilateral hands, rheumatoid nodules swan deformity Neuro: COMMON NORMALS: patient oriented x3, CN's II-XII intact bilaterally, moves all extremities and no focal motor deficits Psych: COMMON NORMALS: mental status grossly normal, Normal thought process present and cooperative THOUGHT PROCESS: Normal thought process present Data : 02/22/21 19:32 02/22/21 19:32 A&P Assessment and plan (1) Transient cerebral ischemia: -CT of the head no acute stroke, NIH stroke scale 0 Plan -Admit to general medical floors -Neurochecks, NIH stroke scales -Telemetry monitoring -Start gentle IV hydration -Aspirin, statin -Advised to quit smoking -Monitor blood pressure closely -Cardiac echo, carotid artery ultrasound -PT, OT, speech -Given his history of palpitations, consider discharging on event monitor -Full code -Lovenox for DVT prophylaxis Status: Acute Qualifiers: Transient cerebral ischemia type: unspecified Qualified Code(s): G45.9 - Transient cerebral ischemic attack, unspecified (2) Rheumatoid arthritis: Status: Acute (3) Tobacco abuse: Status: Acute (4) Hypertension: Status: Acute Qualifiers: Hypertension type: essential hypertension Qualified Code(s): I10 - Essential (primary) hypertension (5) HLD (hyperlipidemia): Status: Acute Attestations Medical Necessity Statement*: Patient requires hospitalization, outpatient with observation, for transient ischemic attack Coding Level of Care Code Acute Lead Network Engineer for [facility] Diagnoses Transient cerebral ischemia G45.9 Transient cerebral ischemia type: unspecified Rheumatoid arthritis M06.9 Tobacco abuse Z72.0 Hypertension I10 Hypertension type: essential hypertension HLD (hyperlipidemia) E78.5
[2021-02-22] MEDS: atorvastatin 40 mg Tablet 80 MG PO (22:23)
[2021-02-22] MEDS: sodium chloride 0.9% 1,000 ML 75 ML IV (22:25)
[2021-02-22] MEDS: enoxaparin 40 mg/0.4 mL Syringe SUBCUT (22:33)
[2021-02-22] MEDS: nicotine 14 mg Patch 1 PATCH TRANSDERMA (23:03)
[2021-02-23] VITALS (8 sets, daily range): BP systolic 108–156; BP diastolic 65–85; PULSE 54–81; RESP 14–18; TEMP 36.4–36.9; O2SAT 91–98
[2021-02-23] MEDS: losartan 50 mg Tablet 100 MG PO (05:37)
[2021-02-23] MEDS: aspirin 81 mg EC Tablet PO (05:38)
[2021-02-23] MEDS: fluticasone nasal spray 16gm Btl INTRANASAL (05:40)
[2021-02-23 05:42] LABS: Basophils % 0.5 %; Eosinophils # 0.3 10^3/uL (0.0-0.8); Eosinophils % 3.5 %; Hematocrit 37.6 % (42.0-52.0); Hemoglobin 12.4 g/dL (11.7-16.6); Lymphocytes # 1.9 10^3/uL (0.8-4.8); Lymphocytes % 23.4 %; Mean Corpuscular Hemoglobin 31.2 pg (28.0-34.0); Mean Corpuscular Volume 94.7 fl (80-94); Mean Platelet Volume 8.8 fL (7.4-10.4); Monocytes # 0.7 10^3/uL (0.2-0.9); Monocytes % 8.3 %; Neutrophils # 5.28 10^3/uL (1.8-7.7); Neutrophils % 63.7 %; Nucleated Red Blood Cells % 0 %; Platelet Count 273 10^3/cmm (130-400); Red Blood Count 3.97 10^6/uL (4.1-5.3); Red Cell Distribution Width 12.8 % (12.1-15.1); White Blood Count 8.3 10^3/uL (4.0-10.0)
[2021-02-23 05:57] LABS: INR 1.07 (0.8-1.2)
[2021-02-23 06:11] LABS: Estmated Average Glucose 108; Hemoglobin A1C 5.4 % (4.0-6.0)
[2021-02-23 06:19] LABS: Chol HDL Ratio 2.91 mg/dL (1.0-5.00); Cholesterol 131 mg/dL (0-200); HDL Cholesterol 45 mg/dL (60-100); LDL Cholesterol Calculated 68 mg/dL (50-129); LDL HDL Ratio 1.51 RATIO (0.00-3.22); NT Pro B Type Natriuretic Pept 255 pg/mL (0-450); Triglycerides 91 mg/dL (0-150)
[2021-02-23 06:21] LABS: Alanine Aminotransferase 9 U/L (0-41); Albumin Level 3.3 g/dL (3.5-5.2); Alkaline Phosphatase 62 IU/L (40-130); Anion Gap 13.8 (5-19); Aspartate Amino Transferase 15 U/L (0-40); Blood Urea Nitrogen 23 mg/dL (8-23); Calcium 8.8 mg/dL (8.5-10.5); Carbon Dioxide 25 mmol/L (22-29); Chloride 103 mmol/L (98-107); Globulin 2.3 g/dL (1.3-4.6); Glucose 92 mg/dL (65-115); Magnesium 1.8 mg/dL (1.7-2.3); Osmolality Calculated 289 mOsm/kg (285-295); Phosphorus 3.1 mg/dL (2.5-4.5); Potassium 3.8 mmol/L (3.5-5.1); Sodium 138 mmol/L (136-145); Thyroid Stimulating Hormone 1.49 uIU/mL (0.27-4.20); Total Bilirubin 0.4 mg/dL (0.15-1.2); Total Protein 5.6 g/dL (6.6-8.7)
[2021-02-23] MEDS: atenolol 50 mg Tablet PO (08:26)
[2021-02-23] MEDS: amlodipine 5 mg Tablet PO (08:26)
[2021-02-23] MEDS: hydroCHLOROthiazide 25 mg Tablet 12.5 MG PO (08:27)
--- NOTE | 2021-02-23 14:30 | PC.NURSE ---
IV removed intact at this time. Patient tolerated well. Patient is A&Ox3. Respirations even and non-labored on room air. Reviewed patient discharge with patient at this time. Patient verbalized understanding of follow up appointments and of the new medications. Patient verbally explained the signs of a stroke.
--- NOTE | 2021-02-23 21:30 | PM.DCS ---
Discharge Providers Date of Admission: 02/22/21 20:38 Date of Discharge: 02/23/2021 Attending Provider at Admission: Agapito Oconnell MD Attending Provider at Discharge: Jeannie Kaur Primary Care Provider: Diallo Araujo MD Diagnoses at Discharge Discharge Diagnosis (1) Transient cerebral ischemia: Status: Acute Qualifiers: Transient cerebral ischemia type: unspecified Qualified Code(s): G45.9 - Transient cerebral ischemic attack, unspecified (2) Rheumatoid arthritis: Status: Acute (3) Tobacco abuse: Status: Acute (4) Hypertension: Status: Acute Qualifiers: Hypertension type: essential hypertension Qualified Code(s): I10 - Essential (primary) hypertension (5) HLD (hyperlipidemia): Status: Acute Reason for Visit Reason for Visit: BACK PAIN/RECENT BLURRED VISION & SLURRED SPEECH Hospital Course Hospital Course 81 year old male with a past medical history of COPD, chronic smoker, hypertension, hyperlipidemia, rheumatoid arthritis currently not on any medications, who presents to [facility] due to complaints of visual changes, slurring of his speech. Patient today's tells me today at 1 PM, he was driving home, from washing his car, when he noticed his vision started to go blurry, and his who is at his side, noticed that his speech was slurred, no focal neurologic deficits, no paresthesias, no facial droop. He continued to drive home, and when he arrived home, he went to bed, and woke up roughly an hour later and his symptoms completely resolved. Denies any prior history of CVAs or strokes. Denies a history of carotid artery stenosis. Denies a history of strokes. No urinary or bowel incontinence. No postictal confusion, no seizure-like events. He is a smoker, he does not know about any family history of strokes, he tells me that he is the youngest of 8 children, and he did not keep up with his family, he went off to the [place] for about 20 years, and he never connected back with his family. Currently he is doing well, NIH stroke scale 0, denies any cardiovascular history, denies any history of chest pain, he does tell me that he was being treated for rheumatoid arthritis a few years ago with some sort of rheumatoid arthritis medication he is not exactly sure which one, but it gave him palpitations, so he had to be stopped, is not sure exactly what the palpitations were, he is not sure if it was atrial fibrillation. Upon admission to the hospital NIH remained zero. He was started on aspirin and statin. ECHO was performed which did not show any acute structural abnormality. Carotid US was done which showed minimal to moderate plaques at the bifurcations and approximately milliliter arteries bilaterally suggesting less than 50% stenosis Intimal thickening and minimal plaques in the common carotid arteries bilaterally. Patient was discharged in stable condition. Physical Exam Const: COMMON NORMALS: no acute distress, patient oriented x3 and healthy appearing GENERAL APPEARANCE: cooperative and comfortable HENMT: COMMON NORMALS: normocephalic and atraumatic HEAD & SCALP: normocephalic and atraumatic Eye: COMMON NORMALS: Equal, round and reactive pupils present and EOMs intact bilaterally GENERAL EYE: appearance normal, both eyes and all related structures PUPIL: Yes Equal, round and reactive pupils present Neck/C-Spine: COMMON NORMALS: full ROM, no lymphadenopathy, supple and Thyroid normal THYROID: Thyroid normal Lymph: LYMPHATIC: no lymphadenopathy noted Chest: COMMONS NORMALS: normal inspection of the chest and normal palpation of entire chest wall Resp: COMMON NORMALS: normal respiratory effort, No retractions, No use of accessory muscles and clear to auscultation bilaterally AUSCULTATION: clear to auscultation bilaterally Cardio: COMMON NORMALS: regular rate, regular rhythm, S1 normal heart sound present, S2 normal heart sound present, No gallops present (Cardio), No clicks present (Cardio) and No murmurs present (Cardio) RATE: regular rate RHYTHM: regular rhythm HEART SOUNDS: S1 normal heart sound present and S2 normal heart sound present GI: COMMON NORMALS: Normal to inspection, nondistended, normoactive bowel sounds present, Soft to palpation, non-tender, No hepatosplenomegaly present and no masses PALPATION: Yes Soft to palpation and Yes No hepatosplenomegaly present Extremity: COMMON NORMALS: normal to inspection, full ROM and no pedal edema OTHER: Bilateral hands, rheumatoid nodules swan deformity Neuro: COMMON NORMALS: patient oriented x3, CN's II-XII intact bilaterally, moves all extremities and no focal motor deficits Psych: COMMON NORMALS: mental status grossly normal, Normal thought process present and cooperative THOUGHT PROCESS: Normal thought process present Skin: COMMON NORMALS: no rashes or lesions noted and no wounds GENERAL SKIN EXAM: no rashes or lesions noted Discharge Data Data Completed and Pending: Completed Studies During Hospitalization Category Date Time Status CT head wo con* [id number] Urgent Cat Scan 02/22/21 19:11 Completed XR chest 1V willard ble [id number] Urgent Exams 02/22/21 19:11 Completed CV carotid duplex BI* [id number] Urgent Ultrasound 02/23/21 21:42 Completed CV. echo complete * [id number] Routine Ultrasound 02/23/21 21:42 Completed Vitals: Last Vital Signs Temp 98.1 F 02/23/21 14:52 Pulse 60 02/23/21 14:52 Resp 16 02/23/21 14:52 BP 134/74 02/23/21 14:52 Pulse Ox 98 02/23/21 14:52 Discharge Plan Discharge Patient Disposition: Home Condition: Stable Prescriptions: New Lipitor 20 mg tablet 20 mg PO DAILY Qty: 30 RF: 0 Continued fluticasone propion-salmeterol [Advair Diskus] 250-50 mcg/dose blister with device 1 inh inhalation BID RF: 0 hydrochlorothiazide 12.5 mg tablet 12.5 mg PO DAILY Qty: 90 RF: 3 multivitamin Tablet 1 tab PO QAM RF: 0 aspirin 81 mg Tablet,Delayed Release (Dr/Ec) 81 mg PO QAM RF: 0 naproxen sodium 220 mg Tablet 220 mg PO DAILY PRN (Reason: Pain) RF: 0 losartan 100 mg tablet 100 mg PO QAM RF: 0 fluticasone propionate 50 mcg/actuation spray,suspension 1 - 2 spray INTRANASAL QAM RF: 0 Spiriva Respimat 2.5 mcg/actuation mist 2 puff INHALATION DAILY RF: 0 amlodipine 5 mg Tablet 5 mg PO DAILY RF: 0 atenolol 50 mg tablet 50 mg PO DAILY RF: 0 Discharge Orders: Discharge Order (Routine); Ordered 02/23/21 Ordered By: Jeannie Kaur Referrals: Diallo Araujo MD [Primary Care Provider] - 4-7 days (Please call on Thursday to schedule an appointment to be seen in 4-7 days.) Discharge Diet: Advance as tolerated Discharge Activity: Increase activity as tolerated Patient Instructions: Atorvastatin (By mouth), Transient Ischemic Attack (DC), Hyperlipidemia (DC), Opioid Safety Activity Restrictions/Additional Instructions: Return to ER if any recurrence of symptoms Discharge Attestations Time Spent in Discharge Care*: greater than 30 min Specific Discharge Activities: educating patient, educating and/or supporting family/caregiver, discussing with pcp/other providers, discussing with patient case manager/social workers/dc planners and documenting/other paperwork Status at Discharge: Cognitive status at discharge: cognitively intact, Behavioral status at discharge: cooperative, Overall status at discharge: patient is back to baseline Quality Metrics Clinical Quality Measures During this hospital stay, did patient experience: None Coding Level of Care Code Acute Chg FW DC note Diagnoses Transient cerebral ischemia G45.9 Transient cerebral ischemia type: unspecified Rheumatoid arthritis M06.9 Tobacco abuse Z72.0 Hypertension I10 Hypertension type: essential hypertension HLD (hyperlipidemia) E78.5
--- NOTE | 2021-02-23 21:42 | USCV_ITS ---
Lencho Blankenship Age: 81 Gender: M : 1940 Exam Date: 02/23/2021 06:56 Ordering Phys: Agapito Oconnell MD Technologist: Arianna Mishra Exam Location: [facility] [place] Indication: Shortness of breath BP: 156 / 85 HR: 70 Rhythm: Sinus Technical Quality: Suboptimal MEASUREMENTS (Male / Female) Normal Values 2D ECHO LV Chamber Size 3.7 cm RV Chamber Size 2.2 cm LVOT Diameter 1.9 cm LV Ejection Fraction MOD 2C 55.3 % LV Ejection Fraction 2C AL 54.6 % LA Diameter 2.9 cm LA Width 2.7 cm LA Height 3.5 cm RA Width 2.8 cm RA Height 3.9 cm Aorta at Sinotubular Diameter 2.5 cm M-MODE LV Diastolic Diameter MM 4.4 cm 4.2 - 5.9 / 3.9 - 5.3 cm LV Systolic Diameter MM 2.9 cm LV Ejection Fraction MM Teich 63.7 % IVS Diastolic Thickness MM 1.0 cm 0.6 - 1.0 / 0.6 - 0.9 cm IVS Systolic Thickness MM 1.0 cm LVPW Diastolic Thickness MM 1.2 cm 0.6 - 1.0 / 0.6 - 0.9 cm LVPW Systolic Thickness MM 1.5 cm RV Diastolic Diameter MM 1.7 cm Aortic Annulus Diameter 3.1 cm LA Ao Ratio MM 0.9 MV E Point Septal Separation 0.3 cm DOPPLER AV Peak Velocity 116.0 cm/s LVOT Peak Velocity 115.0 cm/s AV Area Cont Eq vti 3.1 cm squared AV Area Cont Eq pk 2.8 cm squared MV Area PHT 5.0 cm squared Mitral E to A Ratio 0.8 MV E' Velocity 41.5 cm/s Mitral E to MV E' Ratio 6.6 Mitral E to LV E' Lateral Ratio 5.6 Mitral E to LV E' Septal Ratio 8.1 TR Peak Velocity 197.0 cm/s TR Peak Gradient 15.5 mmHg TV Peak E Velocity 41.0 cm/s Right Atrial Pressure 3.0 mmHg Pulmonary Artery Systolic Pressu 18.5 mmHg PV Peak Velocity 72.0 cm/s RV Acceleration Time 0.1 s RV Ejection Time 0.3 s RV AcT/ET 0.2 FINDINGS Left Ventricle Normal left ventricular size and systolic function, EF 60 %. No regional wall motion abnormalities. Grade I/IV diastolic dysfunction (abnormal relaxation filling pattern), normal to mildly elevated filling pressures. Right Ventricle The right ventricle is normal in size and function. Right Atrium The right atrium is normal in size. Left Atrium The left atrium is normal in size. Mitral Valve Thickened mitral valve. Trace mitral valve regurgitation. Aortic Valve Thickened aortic valve. Tricuspid Valve No gross abnormalities noted Pulmonic Valve No gross abnormalities noted Pericardium Normal pericardium without effusion. Aorta Normal ascending aorta dimension. CONCLUSIONS Normal left ventricular size and systolic function, EF 60 %. No regional wall motion abnormalities. Grade I/IV diastolic dysfunction (abnormal relaxation filling pattern), normal to mildly elevated filling pressures. Minimally thickened aortic and mitral valves. No significant stenotic or regurgitant lesions. Normal cardiac chamber sizes. There is no pericardial effusion. There are no intracardiac masses. Compared to the previous study from 10/07/2018, there may not be a significant change Dr Francine Sorenson MD [facility] (Electronically Signed) Final Date: 23 February 2021 11:57 S
--- NOTE | 2021-02-23 21:42 | USCV_ITS ---
Lencho Blankenship Age: 81 Gender: M : 1940 Exam Date: 02/23/2021 06:36 Ordering Phys: Agapito Oconnell MD Technologist: Arianna Mishra [place] [facility] [place]ication: TIA Risk Factors: Unknown Previous Vascular Surgery: None Right Brachial BP: / Left Brachial BP: / Right Left Velocity (cm/s) Spectral Plaque Velocity (cm/s) Spectral Plaque Syst/Diast Broadening Syst/Diast Broadening 78.30/ 8.80 Prox CCA 71.70 / 11.00 Hetro 63.90/ 11.00 Hetro Mid CCA 116.50/ 12.40 Hetro 59.50/ 18.70 Hetro Distal CCA 104.70/ 13.20 Hetro 87.10/ 20.90 Hetro Prox ICA 184.00/ 44.70 Min Hetro 89.30/ 18.70 Mid ICA 205.10/ 44.70 Min Hetro 86.00/ 22.10 Distal ICA 194.60/ 39.40 Mod 94.80 Hetro ECA 104.50 1.50 ICA/CCA 1.96 Antegrade Vertebral Antegrade 56.20/ 13.20 cm/s 70.90/ 17.10 cm/s Tri Subclavian Tri 106.1 107.1 0 0 FINDINGS Comparison: none available. See measurements listed above. Minimal to moderate plaques at the bifurcations and approximately milliliter arteries bilaterally Intimal thickening and minimal plaques in the common carotid arteries bilaterally. Antegrade flow in the vertebral arteries bilaterally. Normal Doppler flow velocities in the subclavian and external carotid arteries bilaterally CONCLUSIONS Minimal to moderate plaques at the bifurcations and approximately milliliter arteries bilaterally suggesting less than 50% stenosisIntimal thickening and minimal plaques in the common carotid arteries bilaterally. No previous studies are available for comparison. Dr Francine Sorenson MD [facility] (Electronically Signed) Final Date: 23 February 2021 11:42 S
--- NOTE | 2021-02-25 14:27 | PC.RESP ---
SMOKING CESSATION AND PULMONARY REHAB INFORMATION SENT TO PATIENT.
--- NOTE | 2021-02-25 14:35 | PC.SOCIAL ---
discharge follow up call made. no answer, message left
== END 2021-02-23 14:30 | disposition home or self-care (01) ==
LOC: ER 21:00 → MEDSURG 21:16
PROVIDERS: Admitting Provider Family Medicine; Emergency Provider Emergency Medicine; PCP Family Medicine; Visit Provider Hospitalist
DX: G45.9 Transient cerebral ischemic attack, unspecified (principal); M06.9 Rheumatoid arthritis, unspecified; F17.210 Nicotine dependence, cigarettes, uncomplicated; I10 Essential (primary) hypertension; E78.5 Hyperlipidemia, unspecified; J44.9 Chronic obstructive pulmonary disease, unspecified; Z79.82 Long term (current) use of aspirin
CPT/HCPCS: 36415; 36416; 70450; 71045; 80053; 80061; 82962; 83036; 83735; 83880; 84100; 84443; 85025; 85610; 92523; 92610; 93005; 93306; 93880; 94640; 94664; 96372; 97161; 97165; 97530; 99285; G0378; J1650; J7030

== ENCOUNTER → 2021-05-23 11:53 | Outpatient (BNVA) | payer MEDICARE, OTHER, SELFPAY | PROVIDERS: PCP Family Medicine; Visit Provider Emergency Medicine | DX: I10 Essential (primary) hypertension (principal); R53.83 Other fatigue; J44.9 Chronic obstructive pulmonary disease, unspecified; J34.89 Other specified disorders of nose and nasal sinuses; Z72.0 Tobacco use; Z79.899 Other long term (current) drug therapy | CPT/HCPCS: 80048; 82652 ==

== ENCOUNTER 2022-10-29 11:57 | Emergency (ER) | payer MEDICARE, OTHER, SELFPAY ==
[2022-10-29 12:03] VITALS: BP 160/68; PULSE 39; RESP 12; TEMP 36.6; O2SAT 97; BMI 15.6
--- NOTE | 2022-10-29 12:17 | ED_ITS ---
HPI - Headache General: Chief Complaint: Headache Stated Complaint: Dizziness, Weakness, Numbness in face Time Seen by Provider: 10/29/22 12:16 History of Present Illness: Mr. Blankenship is an 82-year-old gentleman presenting to the emergency department for episode of difficulty speaking. He notes waking up this morning and was unable to speak correctly. He cannot think correctly but did have a mild headache and dizziness. He was unable to get words out other than garbled speech. He also noted some facial numbness or tingling and generalized malaise/weakness. Symptoms have currently resolved. Denies similar episodes in the past. No other specific changes in health, exacerbating, or alleviating factors identified. Onset (ago): hour(s) Onset description: on awakening Severity: moderate Relieving factors: other Review of Systems General: Reports: 10 or more systems reviewed and unremarkable except in HPI and below PFSH ED PFSH: Medical History COPD (chronic obstructive pulmonary disease) HLD (hyperlipidemia) Hypertension Rheumatoid arthritis Tobacco abuse Wrist pain Surgical History History of hip replacement Social History Smoking and tobacco status: current every day smoker Quit status (tobacco): considering quitting Second hand smoke exposure: No Smoking risk assessment/counseling performed?: Yes Alcohol intake: never Substance/Drug Use: never Physical Exam Const: COMMON NORMALS: patient oriented x3 and alert GENERAL APPEARANCE: cooperative and well developed HENMT: COMMON NORMALS: normocephalic and atraumatic HEAD & SCALP: normocephalic and atraumatic THROAT: posterior oropharynx normal Eye: COMMON NORMALS: conjunctivae normal CONJUNCTIVA: Yes conjunctivae normal SCLERA: sclerae normal Neck/C-Spine: COMMON NORMALS: supple GENERAL: Yes trachea midline Resp: COMMON NORMALS: normal respiratory effort and clear to auscultation bilaterally EFFORT & INSPECTION: Yes able to speak in complete sentences AUSCULTATION: clear to auscultation bilaterally Cardio: COMMON NORMALS: regular rate and regular rhythm RATE: regular rate RHYTHM: regular rhythm GI: COMMON NORMALS: Soft to palpation PALPATION: Yes Soft to palpation and No Tenderness to palpation present (GI) PERCUSSION: normal to percussion Extremity: GENERAL: Yes normal exam except as noted and No edema Neuro: COMMON NORMALS: patient oriented x3, CN's II-XII intact bilaterally, moves all extremities, no focal motor deficits, no sensory deficits noted and gait normal SENSORIUM/ORIENTATION: Yes alert and No Orientation impaired Psych: COMMON NORMALS: mental status grossly normal and Normal thought process present THOUGHT PROCESS: Normal thought process present Course Vital Signs: Vital signs: Vital Signs Temperature 97.8 F 10/29/22 12:03 Pulse Rate 96 10/29/22 14:33 Respiratory Rate 18 10/29/22 14:33 Blood Pressure 127/77 10/29/22 14:33 Pulse Oximetry 96 10/29/22 14:33 Oxygen Delivery Me thod Room Air 10/29/22 14:33 MDM - Headache Medical Decision Making 82-year-old gentleman presenting with strokelike symptoms that have subsequently resolved. No focal neurologic deficits appreciated on exam. EKG with sinus rhythm with frequent PVCs/PACs, no STEMI. Labs with minimal leukocytosis which is nonspecific, normal hemoglobin. Metabolic without evidence of dehydration. Initial troponin only minimally elev ated however patient has not had chest pain and declines repeat TSH normal. CTA imaging with less than 50% disease, no dense of mass or hemorrhage. Findings discussed with patient. I offered admission for further evaluation of likely TIA. Patient has not had recurrence of symptoms and declines admission at this time. I discussed increased risk of stroke and strict return precautions. I will also initiate patient on statin and Plavix in addition to aspirin. The results of ED evaluation were discussed with the patient including prescriptions and/or symptomatic cares (if applicable) including appropriate and responsible use, followup plan, and return precautions. The patient verbalized u nderstanding and felt safe for discharge. Medical Records I reviewed the patient's medical records. Lab Data I reviewed the patient's lab results. 10/29/22 12:37 10/29/22 12:37 Radiology Impressions Head/Neck CTA 10/29/22 12:27 IMPRESSION: 1. Moderate bilateral carotid bulb calcification. Less than 50% stenosis bilaterally. 2. Both vertebral arteries are patent. Basilar artery is patent. 3. No flow-limiting intracranial stenosis. 4. RIGHT maxillary sinusitis. 5. No other acute findings. Laboratory Results WBC 10.9 10^3/uL (4.0-10.0) H 10/29/22 12:37 RBC 4.73 10^6/uL (4.1-5.3) 10/29/22 12:37 Hgb 14.0 g/dL (11.7-16.6) 10/29/22 12:37 Hct 43.0 % (42.0-52.0) 10/29/22 12:37 MCV 90.9 fl (80-94) 10/29/22 12:37 MCH 29.6 pg (28.0-34.0) 10/29/22 12:37 MCHC 32.6 g/dL (30.0-36.0) 10/29/22 12:37 RDW 13.5 % (12.1-15.1) 10/29/22 12:37 Plt Count 419 10^3/cmm (130-400) H 10/29/22 12:37 MPV 8.0 fL (7.4-10.4) 10/29/22 12:37 Neut % (Auto) 67.7 % 10/29/22 12:37 Lymph % (Auto) 20.0 % 10/29/22 12:37 [place] % (Auto) 8.7 % 10/29/22 12:37 Eos % (Auto) 2.0 % 10/29/22 12:37 Baso % (Auto) 0.5 % 10/29/22 12:37 Neut # (Auto) 7.40 10^3/uL (1.8-7.7) 10/29/22 12:37 Lymph # (Auto) 2.2 10^3/uL (0.8-4.8) 10/29/22 12:37 [place] # (Auto) 1.0 10^3/uL (0.2-0.9) H 10/29/22 12:37 Eos # (Auto) 0.2 10^3/uL (0.0-0.8) 10/29/22 12:37 Baso # (Auto) 0.1 10^3/uL (0.0-0.1) 10/29/22 12:37 Nucleated RBC % (auto) 0 % 10/29/22 12:37 Nucleated RBCs # 0.0 /100WBC 10/29/22 12:37 Sodium 132 mmol/L (136-145) L 10/29/22 12:37 Potassium 4.8 mmol/L (3.5-5.1) 10/29/22 12:37 Chloride 95 mmol/L (98-107) L 10/29/22 12:37 Carbon Dioxide 27 mmol/L (22-29) 10/29/22 12:37 Anion Gap 14.8 (5-19) 10/29/22 12:37 BUN 16 mg/dL (8-23) 10/29/22 12:37 Creatinine 0.7 mg/dL (0.7-1.2) 10/29/22 12:37 GFR Calculation Not Reportable 10/29/22 12:37 Glucose 94 mg/dL (65-115) 10/29/22 12:37 Calculated Osmolality 275 mOsm/kg (285-295) L 10/29/22 12:37 Calcium 10.3 mg/dL (8.5-10.5) 10/29/22 12:37 Total Bilirubin 0.3 mg/dL (0.15-1.2) 10/29/22 12:37 AST 18 U/L (0-40) 10/29/22 12:37 ALT 11 U/L (0-41) 10/29/22 12:37 Alkaline Phosphatase 86 U/L (40-130) 10/29/22 12:37 Troponin T Baseline 16 ng/L (0-15) H 10/29/22 12:37 Total Protein 7.8 g/dL (6.6-8.7) 10/29/22 12:37 Albumin 4.4 g/dL (3.5-5.2) 10/29/22 12:37 Globulin 3.4 g/dL (1.3-4.6) 10/29/22 12:37 TSH 2.21 uIU/mL (0.27-4.20) 10/29/22 12:37 Discharge Plan Discharge Patient Disposition: Home Clinical Impression: Brain TIA Condition: Stable Prescriptions: New Plavix 75 mg tablet 75 mg PO DAILY Qty: 30 0RF atorvastatin 40 mg tablet 40 mg PO QPM Qty: 30 0RF No Action fluticasone propion-salmeterol [Advair Diskus] 250-50 mcg/dose blister with device 1 inh inhalation BID Spiriva Respimat 2.5 mcg/actuation mist 2 puff INHALATION DAILY 90 Days Qty: 3 1RF multivitamin Tablet 1 tab PO QAM aspirin 81 mg Tablet,Delayed Release (Dr/Ec) 81 mg PO QAM naproxen sodium 220 mg Tablet 220 mg PO DAILY PRN (Reason: Pain) losartan 100 mg tablet 100 mg PO QAM amlodipine 5 mg Tablet 5 mg PO DAILY atenolol 50 mg tablet 50 mg PO DAILY Discharge Orders: Discharge ED (Routine); Ordered 10/29/22 Ordered By: Joaquin Avendaño Referrals: Diallo Araujo MD [Primary Care Provider] - Discharge Diet: Usual diet Discharge Activity: Resume usual activity Patient Instructions: Transient Ischemic Attack (ED) Activity Restrictions/Additional Instructions: Thank you for visiting the emergency department. You were seen and evaluated for strokelike symptoms. The most likely cause of your symptoms is a TIA (transient ischemic attack). As discussed there is some increased risk of stroke within the next week. I will prescribe Plavix and also atorvastatin. Please continue your medication regimen. Please follow-up with your primary care provider. Return to the emergency department for any new neurologic symptoms or anything else that you are concerned about and feel needs emergency department evaluation. 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
--- NOTE | 2022-10-29 12:27 | CT_ITS ---
WS: [id number] CTA HEAD AND NECK TECHNIQUE: Contrast enhanced CTA of the head and neck with coronal and sagittal reformatted images an d maximum intensity projection (MIP) images. NASCET criteria utilized. CLINICAL INFORMATION: stroke like symptoms, resolved COMPARISON: 2020 DLP: 947.[address] scans at [facility] use at least one of these dose optimization techniques: automated e xposure control; mA and/or kV adjustment per patient size (includes targeted exams where dose is matc hed to clinical indication); or iterative reconstruction. FINDINGS: No evidence of intracranial hemorrhage or mass effect. Moderate small vessel changes. Moder ate parenchymal volume loss. Intracranial vascular calcification. Mastoid air cells well aerated. RIG HT maxillary sinusitis. Mild mucosal thickening in the ethmoid air cells. Normal posterior nasopharyn x. Lung apices are well aerated. Moderate carotid bulb calcification. RIGHT: RIGHT common carotid artery is patent. Moderate calcified atheromatous disease RIGHT carotid b ulb extending into the ICA. RIGHT ICA stenosis less than 50%. RIGHT ICA is patent to the skull base. Tortuous cervical ICA at the skull base. LEFT: LEFT common carotid artery is patent. LEFT common carotid origin from aortic arch not entirely included on this study. Moderate calcified atheromatous plaque LEFT carotid bulb extending into the I CA. No significant LEFT ICA stenosis. LEFT ICA is patent to the skull base. Tortuous cervical ICA at the skull base. Cavernous carotid calcification. INTRACRANIAL CTA: Both vertebral arteries are patent. Basilar artery is patent. Normal vascularity to the [employer] territory bilaterally. Both ICAs are patent at the skull base. Moderate cavernous carotid calcification. Normal vascularity to the RL and MCA territories bilaterally. No evidence of high-grade proximal stenosis or aneurysm. Small LEFT A1 segment CT/CT angio headneck* [id number] IMPRESSION: 1. Moderate bilateral carotid bulb calcification. Less than 50% stenosis bilat erally. 2. Both vertebral arteries are patent. Basilar artery is patent. 3. No flow-limiting intracranial stenosis. 4. RIGHT maxillary sinusitis. 5. No other acute findings.
--- NOTE | 2022-10-29 12:38 | ECG_ITS ---
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 Measurements Intervals [place] Rate: 80 P: 78 [place]: 151 QRS: 84 QRSD: 98 T: 79 QT: 392 QTc: 455 Interpretive Statements SINUS RHYTHM WITH FREQUENT SUPRAVENTRICULAR PREMATURE COMPLEXES IN A BIGEMINAL PATTERN MINIMAL ST DEPRESSION [0.025+ mV ST DEPRESSION] ABNORMAL RHYTHM ECG Compared to ECG 02/22/2021 18:57:44 ST (T wave) deviation now present Electronically Signed On 10-29-2022 22:23:11 CDT by Francine Sorenson M.D. [email or web address]
[2022-10-29 12:49] LABS: Basophils # 0.1 10^3/uL (0.0-0.1); Basophils % 0.5 %; Eosinophils # 0.2 10^3/uL (0.0-0.8); Lymphocytes # 2.2 10^3/uL (0.8-4.8); Mean Corpuscular HGB Conc 32.6 g/dL (30.0-36.0); Mean Corpuscular Hemoglobin 29.6 pg (28.0-34.0); Mean Corpuscular Volume 90.9 fl (80-94); Monocytes % 8.7 %; Neutrophils % 67.7 %; Nucleated Red Blood Cells % 0 %; Platelet Count 419 10^3/cmm (130-400); Red Blood Count 4.73 10^6/uL (4.1-5.3); Red Cell Distribution Width 13.5 % (12.1-15.1); White Blood Count 10.9 10^3/uL (4.0-10.0)
[2022-10-29 12:52] VITALS: O2SAT 93
[2022-10-29 13:23] LABS: Alanine Aminotransferase 11 U/L (0-41); Albumin Level 4.4 g/dL (3.5-5.2); Alkaline Phosphatase 86 U/L (40-130); Anion Gap 14.8 (5-19); Aspartate Amino Transferase 18 U/L (0-40); Blood Urea Nitrogen 16 mg/dL (8-23); Calcium 10.3 mg/dL (8.5-10.5); Carbon Dioxide 27 mmol/L (22-29); Chloride 95 mmol/L (98-107); Globulin 3.4 g/dL (1.3-4.6); Glucose 94 mg/dL (65-115); Osmolality Calculated 275 mOsm/kg (285-295); Potassium 4.8 mmol/L (3.5-5.1); Sodium 132 mmol/L (136-145); Thyroid Stimulating Hormone 2.21 uIU/mL (0.27-4.20); Total Bilirubin 0.3 mg/dL (0.15-1.2); Total Protein 7.8 g/dL (6.6-8.7)
[2022-10-29 13:37] LABS: Troponin(5th) Baseline 16 ng/L (0-15)
[2022-10-29] MEDS: iohexol 350 mg/mL 500 mL Btl (per mL) IV (13:57)
[2022-10-29 14:33] VITALS: BP 127/77; PULSE 96; RESP 18; O2SAT 96
== END 2022-10-29 15:54 | disposition home or self-care (01) ==
PROVIDERS: Emergency Provider Emergency Medicine; PCP Family Medicine
DX: G45.9 Transient cerebral ischemic attack, unspecified (principal); Z79.82 Long term (current) use of aspirin; J44.9 Chronic obstructive pulmonary disease, unspecified; E78.5 Hyperlipidemia, unspecified; I10 Essential (primary) hypertension; F17.210 Nicotine dependence, cigarettes, uncomplicated
CPT/HCPCS: 36415; 70496; 70498; 80053; 84443; 84484; 85025; 93005; 99285; Q9967

== ENCOUNTER → 2023-07-21 10:56 | Outpatient (BNVA) | payer MEDICARE, OTHER, SELFPAY | PROVIDERS: PCP Family Medicine; Referring Provider Dermatology; Visit Provider Physician Assistant | DX: M25.552 Pain in left hip (principal); Z96.642 Presence of left artificial hip joint; M19.90 Unspecified osteoarthritis, unspecified site | CPT/HCPCS: 73502; 85025; 85651; 86140; 99203 ==

== ENCOUNTER 2023-08-03 08:48 | Outpatient (CLI) | payer MEDICARE, OTHER, SELFPAY ==
--- NOTE | 2023-08-03 09:30 | NMR_ITS ---
PROCEDURE INFORMATION: Exam: NM Bone and/or Joint, 3 Phase Exam date and time: 08/03/2023 9:30 AM Age: 83 years old Clinical indication: Prior surgery; Surgery date: 6+ months; Patient HX: Left hip pain increasing past month, history of left hip replacement. Rheumatoid arthritis (severe in the hands). Quit taking ra meds, only takes motrin; Additional info: Z96.642 - presence of left artificial hip joint, history of left hip madelin arthroplasty TECHNIQUE: Imaging protocol: Nuclear 3 phase bone scan was obtained. Views: Frontal and posterior. Radiopharmaceutical: 25.3 mCi Tc99m HDP @ 0900. Time of imaging post radiopharmaceutical administration: Blood flow, blood pool, and 2 hour static images were obtained. COMPARISON: No relevant prior studies available. FINDINGS: Bones/joints: The bone scan shows normal distribution of radiopharmaceutical throughout the visualized osseous structures. Blood flow, blood pool, and static images are normal without areas of abnormally increased uptake. A photopenic defect within the left proximal femur indicates a hip replacement. No increased uptake surrounding it is seen. Soft tissues: Unremarkable. NM/NM bone 3 phase 52058 IMPRESSION: The findings are normal.
== END 2023-08-03 08:49 | disposition home or self-care (01) ==
LOC: RAD 08:49
PROVIDERS: PCP Family Medicine; Visit Provider Physician Assistant
DX: M25.552 Pain in left hip (principal); Z96.642 Presence of left artificial hip joint
CPT/HCPCS: 78315; A9561

== ENCOUNTER → 2024-06-29 15:11 | Outpatient (BNVA) | payer MEDICARE, OTHER, SELFPAY | PROVIDERS: PCP Family Medicine; Referring Provider Family Medicine; Visit Provider Nurse Practitioner Family | DX: B35.3 Tinea pedis (principal); L29.89 Other pruritus; L72.0 Epidermal cyst; M67.431 Ganglion, right wrist; L82.0 Inflamed seborrheic keratosis; R20.8 Other disturbances of skin sensation; D48.5 Neoplasm of uncertain behavior of skin; L57.0 Actinic keratosis | CPT/HCPCS: 11102; 17000; 17110; 69100; 99204 ==

== ENCOUNTER → 2024-07-15 12:51 | Outpatient (BNVA) | payer MEDICARE, OTHER, SELFPAY | PROVIDERS: PCP Family Medicine; Visit Provider Dermatology | DX: L72.0 Epidermal cyst (principal); L57.0 Actinic keratosis; D03.21 Melanoma in situ of right ear and external auricular canal | CPT/HCPCS: 11643; 13152; 17000; 99213 ==

== ENCOUNTER → 2024-12-15 12:39 | Outpatient (BNVA) | payer MEDICARE, OTHER, SELFPAY | PROVIDERS: PCP Family Medicine; Visit Provider Nurse Practitioner Family | DX: L73.8 Other specified follicular disorders (principal); L72.0 Epidermal cyst; M67.431 Ganglion, right wrist; L81.4 Other melanin hyperpigmentation; L57.8 Other skin changes due to chronic exposure to nonionizing radiation; X32.XXXA Exposure to sunlight, initial encounter; D18.01 Hemangioma of skin and subcutaneous tissue; L82.1 Other seborrheic keratosis; Z08 Encounter for follow-up examination after completed treatment for malignant neoplasm; Z85.820 Personal history of malignant melanoma of skin; L57.0 Actinic keratosis | CPT/HCPCS: 17000; 99213 ==